=== PATIENT | male | born 1990 | race Two or more races ===

== ENCOUNTER 2021-05-12 17:04 | Emergency (ER) | payer OTHER ==
[~2021-05-12] VITALS: Ht 170.2 cm; Wt 79.2 kg
[2021-05-12 17:15] VITALS: BP 118/77
[2021-05-12] MEDS ORDERED: IBUPROFEN 600 MG TABLET. PO ONE (18:45)
[2021-05-12] MEDS ORDERED: CEPH500T PO (18:52)
--- NOTE | 2021-05-12 18:52 | PHYS DOC ---
Past History Past Medical History: No Pertinent History (CHANTELL MEZA APRN) Past Surgical History: Other Additional Past Surgical Histo: ing hernia repair (CHANTELL MEZA APRN) Alcohol Use: None (CHANTELL MEZA APRN) General Adult EDM: Chief Complaint: ANKLE PROBLEM HPI: HPI: Patient is a 30-year-old male who presents with left ankle swelling. Patient states he hit his ankle on a piece of wood on Monday. States that swelling and pain has increased. Pain is worse with ambulation but patient still has full range of motion. Patient denies taking anything for pain prior to arrival. Denies fever denies all medical history. (CHANTELL MEZA APRN) Review of Systems: Review of Systems: Constitutional: Denies fever or chills Eyes: Denies change in visual acuity HENT: Denies nasal congestion or sore throat Respiratory: Denies cough or shortness of breath Cardiovascular: Denies chest pain or edema GI: Denies abdominal pain, nausea, vomiting, bloody stools or diarrhea : Denies dysuria Musculoskeletal: Left ankle pain Integument: Swelling, redness, warmth left ankle Neurologic: Denies headache, focal weakness or sensory changes Endocrine: Denies polyuria or polydipsia Lymphatic: Denies swollen glands Psychiatric: Denies depression or anxiety (CHANTELL MEZA APRN) Current Medications: Current Meds: Current Medications Medications (Trade) Dose Ordered Sig/Margarito Start Time Stop Time Status Last Admin Dose Admin Ibuprofen (Motrin) 600 mg 1X ONCE 05/12/21 18:45 05/12/21 18:46 (CHANTELL MEZA APRN) Allergies: Allergies: Allergies Coded Allergies Type Severity Reaction Last Updated Verified No Known Drug Allergies 05/12/21 No (CHANTELL MEZA APRN) Physical Exam: PE: Constitutional: Well developed, well nourished, no acute distress, non-toxic appearance. [] HENT: Normocephalic, atraumatic, bilateral external ears normal, oropharynx moist, no oral exudates, nose normal. [] Eyes: PERRLA, EOMI, conjunctiva normal, no discharge. [] Neck: Normal range of motion, no tenderness, supple, no stridor. [] Cardiovascular:Heart rate regular rhythm, no murmur [] Lungs & Thorax: Bilateral breath sounds clear to auscultation [] Abdomen: Bowel sounds normal, soft, no tenderness, no masses, no pulsatile masses. [] Skin: Warm, red, swollen, no discharge noted Back: No tenderness, no CVA tenderness. [] Extremities: Left ankle tenderness, ROM intact, swelling Neurologic: Alert and oriented X 3, normal motor function, normal sensory function, no focal deficits noted. [] Psychologic: Affect normal, judgement normal, mood normal. [] (CHANTELL MEZA APRN) Current Patient Data: Vital Signs: Vital Signs Date Time Temp Pulse Resp B/P (MAP) Pulse Ox O2 Delivery O2 Flow Rate FiO2 05/12/21 17:15 95.5 82 18 118/77 (91) 95 Room Air (CHANTELL MEZA APRN) EKG: EKG: [] (CHANTELL MEZA APRN) Radiology/Procedures: Radiology/Procedures: [] (CHANTELL MEZA APRN) Heart Score: C/O Chest Pain: No Risk Factors: Risk Factors: DM, Current or recent (<one month) smoker, HTN, HLP, family history of CAD, obesity. Risk Scores: Score 0 - 3: 2.5% MACE over next 6 weeks - Discharge Home Score 4 - 6: 20.3% MACE over next 6 weeks - Admit for Clinical Observation Score 7 - 10: 72.7% MACE over next 6 weeks - Early Invasive Strategies (CHANTELL MEZA APRN) Course & Med Decision Making: Course & Med Decision Making Pertinent Labs and Imaging studies reviewed. (See chart for details) [] 30-year-old male presents with left ankle swelling. Patient reports hitting his ankle on a piece of wood on Monday. Patient reports swelling and pain has increased. Patient given 600 mg of ibuprofen for pain. Patient sent home with a prescription for Keflex, 1 dose given prior to discharge. Tetanus last given 2 years ago. Patient has full range of motion and able to ambulate. No discharge noted. Pedal pulses intact. Instructed patient to take antibiotic in full as directed. Ibuprofen and Tylenol at home for discomfort. Follow-up with PCP for further management. Patient given strict return precautions. (CHANTELL MEZA APRN) Course & Med Decision Making Did not see or evaluate patient. I agree with [employer]'s work-up and disposition per note. (CONDRA,SELENE Moreno Disclaimer: Josh Disclaimer: This electronic medical record was generated, in whole or in part, using a voice recognition dictation system. (CHANTELL MEZA APRN) Departure Departure: Impression: Primary Impression: Cellulitis Qualified Codes: L03.116 - Cellulitis of left lower limb Disposition: HOME / SELF CARE / HOMELESS Condition: STABLE Referrals: PCP,NO (PCP) Patient Instructions: Cellulitis, [id number] Additional Instructions: You were seen in the emergency room for left ankle swelling and cellulitis I am prescribing you a prescription for Keflex. Please take the antibiotic in full and as directed. I am giving you 1 dose prior to discharge. You can take ibuprofen and Tylenol at home for discomfort. Please follow-up with your PCP for further management. Return to emergency room for worsening symptoms or concerns. EMERGENCY DEPARTMENT GENERAL DISCHARGE INSTRUCTIONS Thank you for coming to [facility] (ED) today and trusting us with you care. We trust that you had a positivie experience in our Emergency Department. If you wish to speak to the department management, you may call the director at [phone]. YOUR FOLLOW UP INSTRUCTIONS ARE FOLLOWS: 1. Do you have a private Doctor? If you do not have a private doctor, please ask for a resource list of physicians or clinics that may be able to assist you with follow up care. 2. The Emergency Physician has interpreted your x-rays. The X-Ray specialist will also review them. If there is a change in the findings, you will be notified in 48 hours when at all possible. 3. A lab test or culture has been done, your results will be reviewed and you will be notified if you need a change in treatment. ADDITIONAL INSTRUCTIONS AND INFORMATION: 1. Your care today has been supervised by a physician who is specially trained in emergency care. Many problems require more than one evaluation for a complete diagnosis and treatment. We recommend that you schedule your follow up appointment as recommended to ensure complete treatment of you illness or injury. If you are unable to obtain follow up care and continue to have a problem, or if your condition worsens, we recommend that you return to the ED. 2. We are not able to safely determine your condition over the phone nor are we able to give sound medical advice over the phone. For these safety reasons, if you call for medical advice we will ask you to come to the ED for further evaluation. 3. If you have any questions regarding these discharge instructions please call the ED at [phone]. SAFETY INFORMATION: In the interest of safety, wellness, and injury prevention; we encourage you to wear your sealbelt, if you smoke; quite smoking, and we encourage family to use a protective helmet for bicycling and other sporting events that present an increased risk for head injury. IF YOUR SYMPTOMS WORSEN OR NEW SYMPTOMS DEVELOP, OR YOU HAVE CONCERNS ABOUT YOUR CONDITION; OR IF YOUR CONDITION WORSENS WHILE YOU ARE WAITING FOR YOUR FOLLOW UP APPOINTMENT; EITHER CONTACT YOUR PRIMARY CARE DOCTOR, THE PHYSICIAN WHOSE NAME AND NUMBER YOU WERE GIVEN, OR RETURN TO THE ED IMMEDIATELY. Scripts Cephalexin (CEPHALEXIN) 500 Mg Tablet 500 MG PO QID for CELLULITIS for 5 Days, #20 TAB Prov: CHANTELL MEZA APRN 05/12/21 CHANTELL MEZA APRN May 12, 2021 18:52 SELENE COLEY MD May 12, 2021 22:31
[2021-05-12] MEDS ORDERED: CEPHALEXIN 250 MG CAPSULE PO ONE (19:00)
== END 2021-05-12 19:12 | disposition home or self-care (01) ==
LOC: ER 17:04
DX: L03.116 Cellulitis of left lower limb (principal)
CPT/HCPCS: 99283